=== PATIENT | male | born 1940 | race Caucasian/White ===

== ENCOUNTER → 2024-05-02 | Outpatient (CLI) | payer OTHER, SELFPAY ==
[2024-05-02 19:05] LABS: Anion Gap 9 (5-15); BUN 14 mg/dL (4-19); BUN/Creat Ratio 18.6 RATIO (10-20); Calcium,Total 9.5 mg/dL (7.6-11.0); Carbon Dioxide 28.1 mmol/L (21.0-32.0); Chloride 103 mmol/L (98-108); Creatinine, Serum 0.77 mg/dL (0.70-1.20); EST Glomerular Filtration Rate 89 (>60); Glucose 109 mg/dL (70-99); Potassium 4.5 mmol/L (3.3-5.1); Sodium Level 140 mmol/L (133-145)
== END | disposition home or self-care (01) ==
LOC: LAB 11:17
PROVIDERS: Referring Provider Urology; Visit Provider Urology
DX: N40.3 Nodular prostate with lower urinary tract symptoms (principal)
CPT/HCPCS: 36415; 80048; 84153

== ENCOUNTER 2024-05-12 15:42 | Outpatient (CLI) | payer OTHER, SELFPAY ==
--- NOTE | 2024-05-12 13:00 | PROSBIL_PTH ---
PATIENT: ROME SANDERS LOC: [facility] U#:[id number] AGE/SX: 84/M ROOM: RE05/12/[address]: Dr. Pablo Gtz MD : 1940 BED: DIS: 05/12/2024 SPEC #: [id number] RECD: 05/13/24 11:09 STATUS: RENEE NINI #: [id number] MACARIO: 05/12/24 13:[address]: Pablo Gtz DEPT: SURGICAL PATHOLOGY RECD BY: Mack Silva ENTERED: 05/13/24 11:10 SP TYPE: PROST BX TY DR: Dr. Calixto Ramirez MD Tissues: A - PROSTATE RIGHT B - PROSTATE LEFT Procedures: PROSTATE BX Immunohistochemical Stains HEADER OPERATION: Prostate biopsy PRE-OP DIAGNOSIS: Elevated PSA TISSUE SUBMITTED: A- Right mid, B- Left mid MICROSCOPIC DIAGNOSIS A. Prostate, right mid, core biopsy: - Adenocarcinoma Miki 4+4=8, 1/2 cores, involving 2% of the tissue. B. Prostate, left mid, core biopsy: - Adenocarcinoma [place] 4+4=8, 2/2 cores, involving 50% of the tissue. MICROSCOPIC DESCRIPTION Slides are reviewed. These tests were developed and their performance characteristics determined by [facility]. They may not have been cleared or approved by the U.S. Food and Drug Administration. The FDA has determined that such clearance or approval is not necessary. The above immunohistochemical/dualISH markers are ordered and reviewed by the Pathologist. GROSS DESCRIPTION A. Received in formalin in a container labeled with the patient's name, date of , and RM are 2 white-duran, wispy core biopsies of soft tissue measuring 0.7 x 0.1 cm and 1.2 x 0.1 cm. Submitted in toto in A1. B. Received in formalin in a container labeled with the patient's name, date of , and LM are 2 white-duran, wispy core biopsies of soft tissue measuring 1.7 x 0.1 cm and 1.9 x 0.1 cm. Submitted in toto in B1. [facility] 05-13-2024 CPT:42053h0, 71398
--- NOTE | 2024-05-18 12:20 | PROST_PTH ---
PATIENT: ROME SANDERS LOC: [facility] U#:[id number] AGE/SX: 84/M ROOM: RE05/12/[address]: Dr. Pablo Gtz MD : 1940 BED: DIS: 05/12/2024 SPEC #: [id number] RECD: 05/18/24 14:27 STATUS: RENEE NINI #: [id number] MACARIO: 05/18/24 12:[address]: Pablo Gtz DEPT: SURGICAL PATHOLOGY RECD BY: Mack Silva ENTERED: 05/18/24 14:27 SP TYPE: PROSTATE OTHR DR: Dr. Calixto Ramirez MD Tissues: A - Prostate, NOS Procedures: Surgery Specimen Level IV HEADER OPERATION: Cysto, transurethral resection prostate PRE-OP DIAGNOSIS: Retention of urine, nodular prostate with lower urinary tract symptoms TISSUE SUBMITTED: A- Prostate tissue MICROSCOPIC DIAGNOSIS A. Prostate, nodular prostate, transurethral resection: - Adenocarcinoma - see note. - Focal acute inflammation. Note: The tissue is markedly distorted by cautery artifact which limits the assessment. Miki grades 3 and 4 are present with cribriform pattern (4) noted. Due to the cautery artifact an accurate assessment of the proportions of both grades cannot be determined. Tumor is estimated to involve less than 5% of the tissue. MICROSCOPIC DESCRIPTION Slides are reviewed. GROSS DESCRIPTION A. Received in formalin in a container labeled with the patient's name, date of , and prostate tissue are multiple bhakta-pink, irregular, and rubbery fragments of soft tissue measuring 6.5 x 6.0 x 2.5 cm in aggregate and 12 g together. The specimen is submitted in toto in A1-14. [facility]OR 05/18/2024 CPT:97286
== END 2024-05-12 23:59 | disposition home or self-care (01) ==
LOC: LABSPEC 15:43
PROVIDERS: PCP Family Medicine; Referring Provider Urology; Visit Provider Urology
DX: C61 Malignant neoplasm of prostate (principal)
CPT/HCPCS: 88305; 88309; 88342; G0416

== ENCOUNTER 2024-05-18 13:36 | Observation (INO) | payer OTHER, SELFPAY ==
[2024-05-18] VITALS (14 sets, daily range): BP systolic 80–179; BP diastolic 44–88; PULSE 50–86; RESP 14–16; TEMP 36.2–36.5; O2SAT 94–99; BMI 22.1
--- NOTE | 2024-05-18 10:10 | PRE.ANES_ITS ---
ASA Classification* ASA Classification ASA Classification: 2 Assessment & Plan Anesthesia* Anesthesia Assessment Anesthesia Assessment: Discussed sedation and/or anesthesia options, risks, benefits, and alternatives with patient/parents/legal guardian/POA. Questions invited. The patient/parents/legal guardian/POA seems to understand and agrees to proceed with anesthesia plan. Reviewed the physical assessment, medical history, allergy history and patient home medications list prior to surgery/procedure/anesthetic and documented any changes. Performed airway and anesthesia risk assessments. 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 When Was Last Pacemaker Check QUESTION #4 FULL TEXT: You/Your Family Experience fever (hyperthermia) with Anesthesia Last Oral Intake Last Oral intake: Last Oral Intake NPO since Meds taken in AM with sips of water? Meds patient instructed to take am of surgery PONV PONV - carton forming machine operator: PONV - carton forming machine operator Female No 05/16/24 09:18 HX of Motion Sickness No 05/16/24 09:18 HX of N/V After Surgery No 05/16/24 09:18 Non-Smoker Yes 05/16/24 09:18 Duration of Surgery greater Yes 05/16/24 09:18 than 60 minutes Number of Risk Factors 2 05/16/24 09:18 PONV Score Moderate Risk 05/16/24 09:18 Respiratory Assessment Respiratory Assessment - carton forming machine operator: Respiratory Tract Infection Hx - carton forming machine operator Hx Respiratory Tract Infection No 05/16/24 09:18 STOP Sleep Apnea STOP Sleep Apnea - carton forming machine operator: STOP Sleep Apnea - carton forming machine operator Hx Hypertension No 05/16/24 09:18 Hx Sleep Apnea No 05/16/24 09:18 CPAP BIPAP Do you snore loudly (louder No 05/16/24 09:18 than talking or can be heard Do you often feel tired/ Yes 05/16/24 09:18 fatigued/ sleepy during daytime? Has anyone observed you stop No 05/16/24 09:18 breathing during sleep? STOP Results Negative 05/16/24 09:18 QUESTION #5 FULL TEXT : Do you snore loudly (louder than talking or can be heard through closed doors)? Tobacco Use History Tobacco Use History - carton forming machine operator: Tobacco Use History - carton forming machine operator Tobacco Use Smoking Status Never smoker 05/16/24 09:18 Hx Tobacco Use No 05/16/24 09:18 Years Smoking Packs Smoked per Day Smoking Cessation Date was within the last 15 years Hx Smoking Cessation Date Hx Smoking Cessation Counseling Hematologic Medial History Hematologic Hx - carton forming machine operator: Hematologic Medical Hx - rn documentation Hx of Blood Transfusion No 05/16/24 09:18 Hx of Transfusion in last 3 No 05/16/24 09:18 Months Date of Last Transfusion (if within last 3 months) Ever experience any problems No 05/16/24 09:18 with transfusion(s)? Specify any problems Hx of Preganancy in last 3 N/A 05/16/24 09:18 Months Nurse Filling Out Transfusion DSCHRIBER 05/16/24 09:18 & Questions: Date: 05/16/24 05/16/24 09:18 Time: 09:20 05/16/24 09:18 Patient unable to answer at this time (ie. confused, unrespo /Reproduction History /Reproductive History - carton forming machine operator: /Reproductive Hx- carton forming machine operator Hx Now No 05/16/24 09:18 Gestational Age (in weeks): EDC: Hx Hx Para Hx Section SAB No 05/16/24 09:18 Active Medications Active Medications: Current Medications Generic Name Dose Route Start Last Admin Trade Name Freq PRN Reason Stop Dose Admin Cefazolin Sodium 2 gm/ N/A 20 mls @ 400 mls/hr 05/18/24 12:20 IV 05/18/24 12:22 PREOP ONE Sodium Chloride 1,000 mls @ 15 mls/hr 05/18/24 10:00 IV .Q48H CHELLY PFSH Medical History Wears hearing aid Wears glasses Wears partial dentures Indwelling urethral catheter present Prostate disease Injury of head and neck Non-smoker Shortness of breath on exertion History of edema Home Medications ?Medication ?Instructions ?Recorded ?Last Taken ?Type BIOACTIVE Q 100 mg PO BID 05/16/24 Unkno wn History HEALTHY PROSTATE 2 cap PO DAILY 05/16/24 Unkn own History JOINT AND BONE ESSENTIAL 2 tab PO BID 05/16/24 Unknow n History PROBIOTIC ESSENTIAL 1 tab PO DAILY 05/16/24 Unkn own History hawthorn 500 mg capsule (hawthorn 500 mg PO BID Unknown History wesley) saw palmetto 160 mg capsule 320 mg PO DAILY 05/16/24 U nknown History tamsulosin 0.4 mg capsule 0.4 mg PO DAILY 05/16/24 Unk nown History Allergy/AdvReac Type Severity Reaction Status Date / Time No Known Allergies Allergy Verified 05/16/24 09:09 Surgical History Hx of appendectomy Social History Smoking Status: Never smoker Review of Systems (Anesthesia) ROS Narrative System reviewed and no additional complaints, except as documented.
--- NOTE | 2024-05-18 10:18 | EKG12_ITS ---
Test Reason : PRE OP Blood Pressure : */* mmHG Vent. Rate : 58 BPM Atrial Rate : 58 BPM P-R Int : 198 ms QRS Dur : 94 ms QT Int : 426 ms P-R-T Axes : 63 -55 50 degrees QTcB Int : 418 ms Sinus bradycardia Left anterior fascicular block Abnormal ECG Confirmed by OSKAR MAHAJAN, DONYA ([id number]), publications editor RUSSEL RICHARDS ([id number]) on 05/19/2024 12:52:44 PM Referred By: Pablo Gtz Confirmed By: DONYA SCHMITT MD
[2024-05-18] MEDS: 0.9% Normal Saline (1000mL) 1,000 ML 15 ML IV (10:32)
[2024-05-18] MEDS: Cefazolin 2 GM in Syringe IV (12:43)
[2024-05-18] MEDS: Lactated Ringers 1,000 ML 15 ML IV (13:20)
--- NOTE | 2024-05-18 13:40 | DCINST_ITS ---
Discharge Instructions Diet Discharge Diet: No restrictions DC O2, CPAP, BIPAP needs Home O2 Discharge instructions: No Dressing / Incision Discharge Activity: Return to Normal Activity and May Not Drive (while taking narcotic pain medications.) Dressing / Incision Call your doctor if you observe: Fever of 101 or Higher Catheter: Teran to leg bag and Teran to large bag Drain: [place] Follow Up Care Please Follow Up With: Pablo Gtz MD When: Call [phone] for an appointment Test Results: Test results from this visit will be discussed in further detail at your follow- up appointment, if applicable. Discharge Plan Admission Primary Reason for Your Visit: turp Attending Provider: Pablo Gtz Primary Care Provider: Calixto Ramirez Instructions Print Language: Croatian Discharge Orders/Prescriptions Prescriptions: Continued tamsulosin 0.4 mg capsule 0.4 mg PO DAILY saw palmetto 160 mg capsule 320 mg PO DAILY Rx Instructions: give with food (meal/snack) HEALTHY PROSTATE 2 cap PO DAILY JOINT AND BONE ESSENTIAL 2 tab PO BID hawthorn wesley 500 mg capsule 500 mg PO BID BIOACTIVE Q 100 mg PO BID PROBIOTIC ESSENTIAL 1 tab PO DAILY Referrals / Follow Up: Calixto Ramirez MD [Primary Care Provider] - Disposition Disposition (needs filled in before D/C Order can be placed): Home, Self Care
--- NOTE | 2024-05-18 13:40 | OP.PCM_ITS ---
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 Post-Operative Diagnosis: The same Surgery/Procedure Performed: Transurethral section of prostate federal appellate law clerk: No Type of Anesthesia: General RN Documented Start/Stop Times: Operation Date: 05/18/24 12:20 Case Time Into Pre-Op 05/18/24 09:59 Out of Pre-Op 05/18/24 12:31 Anesthesia Start 05/18/24 12:32 Into Room 05/18/24 12:32 Procedure Start 05/18/24 12:52 Procedure End 05/18/24 13:32 Procedure Start Time: 12:52 Procedure Stop Time: 13:41 Select all DRAINS/GRAFTS/IMPLANTS that apply: None Estimated Blood Loss: 10cc Specimen collected: Yes Description of specimen(s) removed: Prostate tissue Description of surgery: Patient was taken back to the operating room after smooth induction of anesthesia he was placed in dorsolithotomy position. The penis and testicles were prepped and draped in usual sterile fashion within the bladder with the 26 Iraqi flow continuous-flow resectoscope the entire length of the urethra was clear of any strictures or problems I went past the verumontanum identified a large obstructive prostate and then went into the bladder identified the right and left ureteral orifice I then started the resection at the bladder neck worked my way back to the verumontanum and resected a nice wide open channel that a flow test and a really good flow sphincter looked intact I then cauterized the resection site to obtain hemostasis we put a 22 Iraqi catheter in the bladder for continuous bladder irrigation after resecting the prostate right lobe and left of the prostate wide open channel and cauterizing extensively took about an hour to resect the prostate Teran catheter was placed and he will be kept overnight for observation for irrigation and probably home tomorrow with a catheter. Surgical Findings: Large obstructive prostate Complications Complications: No Admit VTE Documentation VTE Present on Admission: No VTE Mechan Device Prophylaxis: SCD's VTE Pharm Prophylaxis ordered?: No
--- NOTE | 2024-05-18 13:40 | PCM.HP.STD ---
HPI - General General Date of Service: 05/18/24 Chief Complaint: BPH with retention and prostate cancer HPI Narrative ROME SANDERS, is a 84 M who presents retention of urine and prostate cancer he has failed voiding trials he has a Teran catheter and plan to do a TURP to alleviate obstruction PFSH Medical History Wears hearing aid Wears glasses Wears partial dentures Indwelling urethral catheter present Prostate disease Injury of head and neck Non-smoker Shortness of breath on exertion History of edema Home Medications ?Medication ?Instructions ?Recorded ?Last Taken ?Type BIOACTIVE Q 100 mg PO BID 05/16/24 05/16/24 History HEALTHY PROSTATE 2 cap PO DAILY 05/16/24 05/16/24 History JOINT AND BONE ESSENTIAL 2 tab PO BID 05/16/24 05/16/24 History PROBIOTIC ESSENTIAL 1 tab PO DAILY 05/16/24 05/16/24 History hawthorn 500 mg capsule (hawthorn 500 mg PO BID 05/16/24 05/16/24 History wesley) saw palmetto 160 mg capsule 320 mg PO DAILY 05/16/24 05/16/24 History tamsulosin 0.4 mg capsule 0.4 mg PO DAILY 05/16/24 05/17/24 History Allergy/AdvReac Type Severity Reaction Status Date / Time No Known Allergies Allergy Verified 05/18/24 10:10 Surgical History Hx of appendectomy Social History Smoking Status: Never smoker Vital Signs Vital Signs Vital Signs: 05/18/24 10:12 05/18/24 10:12 Temperature 97.1 F L Temperature Source Temporal Pulse Rate 56 L Respiratory Rate 16 Respiratory Pattern Normal Blood Pressure 179/82 H Blood Pressure Mean 114 Blood Pressure Source Monitor Blood Pressure Position Semi-Fowlers Blood Pressure Location Left Arm Pulse Ox 99 Oxygen Delivery Method Room Air Weight Weight: 68 kg Body Mass Index (BMI) 22.1
--- NOTE | 2024-05-18 13:48 | PCM.POST.ANE ---
Anesthesia: Postop Eval I Current Vital Signs Temperature: 97.4 F Pulse Rate: 66 Blood Pressure: 132/76 Respiratory Rate: 16 Pulse Ox: 96 Oxygen Delivery Method: Room Air Assessment Airway patent: Yes Spontaneous unlabored respirations: Yes Mental status: Asleep nausea: No Vomiting: No Anesthesia Complication: No Fluid Hydration Crystalloid volume administer (ml): 1,300 Total IV fluid infused: 1,300 Progress Note Anesthesia document: Postop Eval 1 completed: Yes
[2024-05-18] MEDS: Ketorolac 15 MG/ML Vial IV (14:09)
--- NOTE | 2024-05-18 14:33 | POSTOPAN2_ITS ---
Anesthesia Postop Eval I Sum Postop Eval Completion status Anesthesia document: Postop Eval 1 completed: Yes Anesthesia Postop Eval I Summary Anesthesia Postop Eval I Summary: Anesthesia Postop Eval I: Assessment Summary Airway patent Yes 05/18/24 13:50 ORACLE DATABASE ANALYST.JDEF Spontaneous unlabored Yes 05/18/24 13:50 ORACLE DATABASE ANALYST.JDEF respirations Mental status Asleep 05/18/24 13:50 ORACLE DATABASE ANALYST.JDEF nausea No 05/18/24 13:50 ORACLE DATABASE ANALYST.JDEF Vomiting No 05/18/24 13:50 ORACLE DATABASE ANALYST.JDEF Anesthesia Postop Eval I: Fluid Summary Crystalloid volume administer 1,300 05/18/24 13:50 ORACLE DATABASE ANALYST.JDEF (ml) Colloids volume administered ( ml) Blood Product volume administered (ml) Total IV fluid infused 1,300 05/18/24 13:50 ORACLE DATABASE ANALYST.JDEF Anesthesia Postop Eval I: Summary Notes Anesthesia Complication No 05/18/24 13:50 ORACLE DATABASE ANALYST.JDEF Anesthesia Complication Comment: Post-operative progress note Anesthesia: Postop Eval II Evaluation Mental status: Awake Pain Level: 0 nausea: No Vomiting: No
--- NOTE | 2024-05-18 14:33 | PCM.POSTANE2 ---
Anesthesia Postop Eval I Sum Postop Eval Completion status Anesthesia document: Postop Eval 1 completed: Yes Anesthesia Postop Eval I Summary Anesthesia Postop Eval I Summary: Anesthesia Postop Eval I: Assessment Summary Airway patent Yes 05/18/24 13:50 ADDRESSING MACHINE OPERATOR.JDEF Spontaneous unlabored Yes 05/18/24 13:50 ADDRESSING MACHINE OPERATOR.JDEF respirations Mental status Asleep 05/18/24 13:50 ADDRESSING MACHINE OPERATOR.JDEF nausea No 05/18/24 13:50 ADDRESSING MACHINE OPERATOR.JDEF Vomiting No 05/18/24 13:50 ADDRESSING MACHINE OPERATOR.JDEF Anesthesia Postop Eval I: Fluid Summary Crystalloid volume administer 1,300 05/18/24 13:50 ADDRESSING MACHINE OPERATOR.JDEF (ml) Colloids volume administered ( ml) Blood Product volume administered (ml) Total IV fluid infused 1,300 05/18/24 13:50 ADDRESSING MACHINE OPERATOR.JDEF Anesthesia Postop Eval I: Summary Notes Anesthesia Complication No 05/18/24 13:50 ADDRESSING MACHINE OPERATOR.JDEF Anesthesia Complication Comment: Post-operative progress note Anesthesia: Postop Eval II Evaluation Mental status: Awake Pain Level: 0 nausea: No Vomiting: No
[2024-05-18] MEDS: 0.9% Normal Saline (1000mL) 1,000 ML 125 ML IV ×2 (15:19→23:57)
[2024-05-18] MEDS: 0.9% Normal Saline (1000mL) 1,000 ML 999 ML IV (18:59)
[2024-05-18] MEDS: Cefazolin 1 GM/50 ML BAG IV (21:49)
[2024-05-19 03:50] VITALS: BP 110/73; PULSE 58; RESP 16; TEMP 36.6; O2SAT 95
[2024-05-19] MEDS: Cefazolin 1 GM/50 ML BAG IV (05:47)
[2024-05-19 06:40] LABS: Absolute Lymphocyte Count 1.19 X10^3/uL (0.83-4.51); Absolute Neutrophil Count 7.2 X10^3/uL (2.0-7.7); Basophil# 0.03 X10^3/uL; Basophil% 0.3 % (0-1); Eosinophil# 0.11 X10^3/uL; Eosinophils% 1.2 % (0-5); Hematocrit 29.1 % (40-54); Hemoglobin 9.4 g/dL (13.0-16.5); Lymphocyte # 1.19 X10^3/ul (0.83-4.51); Lymphocyte % 12.8 % (19-41); Mean Corp Hgb Conc 32.3 g/dL (32-36); Mean Corpuscular Hgb 29.6 pg (27.0-32.0); Mean Corpuscular Volume 91.5 fL (80-94); Mean Platelet Vol. 9.9 fl (6.2-12.0); Monocyte% 8.6 % (0-10); NRBC Flagged by Analyzer 0 % (0-5); Neutrophil # 7.16 X10^3/uL (2.7-7.7); Neutrophil % 76.7 % (47-70); Platelet Count 229 K/mm3 (150-450); RBC Distribution Width CV 15.4 % (11.6-14.6); RBC Distribution Width SD 50.9 fl (35.1-43.9); Red Blood Count 3.18 M/mm3 (4.6-6.2); White Blood Count 9.3 K/mm3 (4.4-11.0)
[2024-05-19 07:02] LABS: Anion Gap 7 (5-15); BUN 13 mg/dL (4-19); BUN/Creat Ratio 15.4 RATIO (10-20); Calcium,Total 7.9 mg/dL (7.6-11.0); Carbon Dioxide 24.6 mmol/L (21.0-32.0); Chloride 109 mmol/L (98-108); Creatinine, Serum 0.86 mg/dL (0.70-1.20); EST Glomerular Filtration Rate 86 (>60); Glucose 90 mg/dL (70-99); Potassium 4.5 mmol/L (3.3-5.1); Sodium Level 140 mmol/L (133-145)
[2024-05-19 07:25] VITALS: BP 126/76; PULSE 57; RESP 16; TEMP 36.8; O2SAT 95
--- NOTE | 2024-05-19 07:26 | PCM.PN.GU ---
Subjective Subjective s/p turp doing well had one episode of low BP resoved with bolus home with worthy Objective Data Objective Data Vital Signs: Vital Signs Temp Pulse Resp BP Pulse Ox O2 Del Method 98 F 58 L 16 110/73 95 Room Air 05/19/24 03:50 05/19/24 03:50 05/19/24 03:50 05/19/24 03:50 05/19/24 03:50 05/19/24 03:50 Oxygen Delivery Method Room Air Weight: 68 kg Body Mass Index (BMI) 22.1 Intake & Output: Intake and Output for Last 24 Hours 05/17/24 05/18/24 05/19/24 23:59 23:59 23:59 Intake Total 3420 / 3420 217.75 / 217.75 Output Total 1700 / 1700 1500 / 1500 Balance 1720 / 1720 -1282.25 / -1282.25 Lab / Micro Data 05/19/24 06:03 05/19/24 06:03 Labs: Laboratory Results - last 24 hr 05/19/24 06:03: WBC 9.3, RBC 3.18 L, Hgb 9.4 L, Hct 29.1 L, MCV 91.5, MCH 29.6, MCHC 32.3, RDW Std Deviation 50.9 H, RDW Coeff of Jaleel 15.4 H, Plt Count 229, MPV 9.9, Immature Gran % (Auto) 0.400, Neut % (Auto) 76.7 H, Lymph % (Auto) 12.8 L, [place] % (Auto) 8.6, Eos % (Auto) 1.2, Baso % (Auto) 0.3, Absolute Neuts (auto) 7.2, Absolute Lymphs (auto) 1.19, Nucleated RBC % 0, Sodium 140, Potassium 4.5, Chloride 109 H, Carbon Dioxide 24.6, Anion Gap 7, BUN 13, Creatinine 0.86, Estim Creat Clear Calc 62.60, Est GFR (MDRD) Non-Af 86, BUN/Creatinine Ratio 15.4, Glucose 90, Calcium 7.9
--- NOTE | 2024-05-19 09:36 | CASEMGMT ---
RN RHETT NOTE: DC order is in. Pt to dc w/ F/C to leg bag. RN CM to room. Pt sitting up in chair in room, @ bedside. Pt aware he will be dc'ing w/ F/C, states has had one in the past @ home, and feels comfortable w/managing this again. He is aware RN, Bandar, will be educating/reviewing this with him prior to discharge. He denies having any dc concerns or questions. He is aware to call Dr Gtz's office to schedule f/u appt for next week. Malik BSN RN CM
[2024-05-19 09:53] VITALS: BP 98/55; PULSE 71; RESP 20; TEMP 36.6; O2SAT 95
--- NOTE | 2024-05-19 09:59 | NURSING ---
instructed pt to call Dr Gtz, tomorrow, if he continues with dark red urine. He was also instructed to push the fluids.
== END 2024-05-19 11:31 | disposition home or self-care (01) ==
LOC: SDC 14:29 → MS3 14:29
PROVIDERS: Admitting Provider Urology; PCP Family Medicine; Referring Provider Urology; Visit Provider Urology
PROC: 0VT08ZZ Resection of Prostate, Via Natural or Artificial Opening Endoscopic (ICD-10-PCS; CPT 52601; principal; 2024-05-18 12:10)
DX: N40.1 Benign prostatic hyperplasia with lower urinary tract symptoms (principal); C61 Malignant neoplasm of prostate; N40.3 Nodular prostate with lower urinary tract symptoms; I95.9 Hypotension, unspecified; R33.8 Other retention of urine; R35.0 Frequency of micturition; R39.11 Hesitancy of micturition; R35.1 Nocturia; R32 Unspecified urinary incontinence; Z79.899 Other long term (current) drug therapy
CPT/HCPCS: 52601; 00914; 36415; 80048; 85025; 93005; 96361; 96365; 96366; 99221; G0378; J2405